=== PATIENT | female | born 1955 | race Caucasian/White ===

== ENCOUNTER → 2021-12-18 | Outpatient (CLI) | payer MEDICARE ==
[~2021-12-18] MED LIST: LIDOCAINE 1% Multi-Dose 20 ML VIAL. INJ ONE; LIDOCAINE 1%/EPI 1:100,000 20 ML VIAL. INJ ONE; LIDOCAINE 2%/EPI 1:100,000 20 ML VIAL. INJ ONE
--- NOTE | 2021-12-18 13:47 | RAD ---
EXAM: Stereotactic left breast biopsy; specimen radiograph; post-biopsy clip placement; unilateral po st-biopsy mammogram. HISTORY: 66-year-old female presents for stereotactic guided biopsy of microcystic calcifications wit hin the left breast demonstrated on a study performed at an outside facility. TECHNIQUE AND FINDINGS: The procedure and its risks and benefits were discussed with the patient. Ris ks discussed included, but were not limited to, pain, infection, bleeding and need for repeat biopsy. The patient provided verbal and written consent. A timeout was performed. The images obtained at outside facility were reviewed. There are multiple scattered clusters of micro calcifications throughout the left breast, all which demonstrate similar morphology. There is a biops y clip within the 12:00 position at mid depth corresponding with the location of prior benign biopsy. Given the multiplicity of clustered microcalcifications, the decision was made to proceed with biopsy of the calcifications demonstrating a somewhat linear distribution at the 3:00 position at mid to po sterior depth as medical sales representative of the additional calcifications. The patient was placed in a seated position at the stereotactic biopsy unit and the left breast was p laced in lateral medial compression. Images were obtained and the calcifications of concern were loca lized using stereotaxis. The skin overlying this region was then sterilely prepped and infiltrated wi th a few cc 1% lidocaine for local anesthesia. Deeper soft tissue anesthesia was administered with ep inephrine in 1% lidocaine. A small skin incision was made and the biopsy device was advanced and appr opriate positioning was confirmed with additional images. Subsequently, a double core biopsy samples were obtained with vacuum assistance. A plain radiograph o f the specimen was obtained, demonstrating inclusion of the lesion of interest. Then, a post-biospy c lip was advanced to the site of biopsy using the same guidance technique. A sterile bandage was plac ed, and the patient was transferred to the mammography suite for craniocaudal and mediolateral obliqu e views. The post-biopsy mammogram was interpreted as a separate workstation and demonstrates immediate post-b iospy changes and a biopsy clip in expected position. The patient tolerated the procedure without dif ficulty and was discharged to home in stable condition with post-biospy care instructions. IMPRESSION: 1. Successful stereotactic biopsy of clustered microcalcifications within the 3:00 position of the le ft breast at mid to posterior depth and post-biopsy clip placement. An addendum to this report will b e submitted when pathology results are available. 2. Note is made of multiple additional clusters of calcifications with similar morphology to the calc ifications selected for sampling throughout the left breast. If the biopsy results are positive for a typia or malignancy, additional sampling of the most remote set of calcifications from the current bi opsy bed can be performed to determine whether breast conservation surgery is possible. Electronically signed by: Aracelis Roland MD (12/18/2021 1:44 PM) [id number]
== END | disposition home or self-care (01) ==
LOC: MAMMO 12:01
PROVIDERS: ATTEND Family Medicine
DX: R92.0 Mammographic microcalcification found on diagnostic imaging of breast (principal); Z88.8 Allergy status to other drugs, medicaments and biological substances
CPT/HCPCS: 19081; 77065; J3490